=== PATIENT | female | born 1990 | race Caucasian/White ===

== ENCOUNTER 2017-09-26 09:21 | Emergency (ER) | payer SELFPAY | END 2017-09-26 14:11 | disposition home or self-care (01) | LOC: FTE 09:21 | DX: S13.4XXA Sprain of ligaments of cervical spine, initial encounter (principal); S00.33XA Contusion of nose, initial encounter; R07.9 Chest pain, unspecified; V49.40XA Driver injured in collision with unspecified motor vehicles in traffic accident, initial encounter | CPT/HCPCS: 70450; 70486; 71045; 81025; 99285-25 ==